=== PATIENT | female | born 1960 | race Caucasian/White ===

== ENCOUNTER 2025-04-17 16:29 | Emergency (ER) | payer OTHER, SELFPAY ==
[2025-04-17 16:30] VITALS: BP 150/79; PULSE 80; RESP 18; TEMP 35.9; O2SAT 100; BMI 22.9
[2025-04-17 17:31] LABS: Mucous, Urine 0 SEEN /hpf (<or=2+); Squamous Epithelial Cells - UA 0 SEEN /hpf (5-10)
[2025-04-17] MEDS: 0.9% Normal Saline (1000mL) 1,000 ML 999 ML IV (17:40)
[2025-04-17 17:43] LABS: Hematocrit 38.4 % (37-47); Hemoglobin 13.0 g/dL (12.0-15.0); Immature Granulocytes Count 0.050 X10^3/uL (0.0-0.0); Mean Corp Hgb Conc 33.9 g/dL (32-36); Mean Corpuscular Volume 91.6 fL (81-99); Mean Platelet Vol. 9.9 fl (6.2-12.0); NRBC Flagged by Analyzer 0 % (0-5); Platelet Count 195 K/mm3 (150-450); RBC Distribution Width CV 12.2 % (11.6-14.6); RBC Distribution Width SD 40.7 fl (35.1-43.9); Red Blood Count 4.19 M/mm3 (4.2-5.4); White Blood Count 12.1 K/mm3 (4.4-11.0)
[2025-04-17 17:48] LABS: AST(SGOT) 30 U/L (<=31); Alanine Aminotransfer ALT/SGPT 12 U/L (<=34); Albumin, Serum 4.5 g/dL (3.4-4.8); Alkaline Phosphatase 74 U/L (35-104); Anion Gap 12 (5-15); BUN 17 mg/dL (4-19); BUN/Creat Ratio 21.5 RATIO (10-20); Calcium,Total 9.4 mg/dL (7.6-11.0); Carbon Dioxide 25.9 mmol/L (21.0-32.0); Chloride 99 mmol/L (98-108); Estimated Creatinine Clearance 64.82 ml/min (50-250); Globulin 2.7 g/dL (2.2-4.2); Glucose 135 mg/dL (70-99); Lipase 36 U/L (13-75); Potassium 3.7 mmol/L (3.3-5.1)
[2025-04-17 17:50] LABS: Color, Urine Yellow (Yellow); Glucose, Dipstick Normal (Normal); Ketone-Dipstick 50 mg/dl (Negative); Leukocyte Esterase-Dipstick 25 /ul (Negative); Nitrite-Dipstick Negative (Negative); Occult Blood-Urine 250 /ul (Negative); Protein-Dipstick 30 mg/dl (Negative); Specific Gravity, Urine 1.020 (1.002-1.030); Urine Bilirubin Dipstick Negative (Negative)
[2025-04-17 18:32] VITALS: PULSE 84; RESP 14; O2SAT 100
[2025-04-17 19:38] LABS: Red Blood Cells-Urine 25-50 SEEN /hpf (0-5)
[2025-04-17] MEDS: levoFLOXacin IV 750 MG/150 ML BAG 100 MG IV (19:57)
[2025-04-17 20:00] VITALS: PULSE 78; RESP 18; O2SAT 98
[2025-04-17 20:37] VITALS: BP 112/59; PULSE 77; RESP 18; TEMP 36.4; O2SAT 99
== END 2025-04-17 21:34 | disposition home or self-care (01) ==
PROVIDERS: Emergency Provider Surgery; Visit Provider Surgery
DX: N13.2 Hydronephrosis with renal and ureteral calculous obstruction (principal); D72.829 Elevated white blood cell count, unspecified; N39.0 Urinary tract infection, site not specified
CPT/HCPCS: 74177; 80053; 81001; 83690; 85025; 87086; 96361; 96365; 96366; 96375; 96376; 99283; Q9967; A4216; J2405

== ENCOUNTER → 2025-04-24 | Outpatient (CLI) | payer OTHER, SELFPAY ==
--- NOTE | 2025-04-24 15:38 | RAD_ITS ---
PROCEDURE: RAD/Abdomen Single View
[2025-05-05 01:07] LABS: Ca Oxalate, Dihydrate 20 % (.); Ca Oxalate, Monohydrate 80 % (.)
== END | disposition home or self-care (01) ==
DX: N13.2 Hydronephrosis with renal and ureteral calculous obstruction (principal)
CPT/HCPCS: 74018; 82360; 88300